=== PATIENT | female | born 1950 | race Caucasian/White ===

== ENCOUNTER 2016-08-23 06:22 | Day surgery (SDC) | payer MEDICARE, OTHER ==
[~2016-08-23 06:22] MED LIST: Lactated Ringers 1,000 ML IV SCH
[2016-08-23] MEDS ORDERED: Propofol 200 MG/20 ML SDV ONE (07:53)
[2016-08-23] MEDS ORDERED: fentaNYL 100 MCG/2 ML SDV ONE (07:53)
[2016-08-23 08:39] VITALS: BP 115/55
--- NOTE | 2016-08-23 09:17 | OR ---
PREOPERATIVE DIAGNOSIS: Chronic gastroesophageal reflux disease. POSTOPERATIVE DIAGNOSIS: 1. Small hiatal hernia without active gastroesophageal reflux disease. 2. Mild to moderate antritis. 3. Diffuse gastritis. PROCEDURE PROPOSED: Upper gastrointestinal panendoscopy with antral biopsies. PROCEDURE DONE: Upper gastrointestinal panendoscopy with antral biopsies. INDICATION: This is a 66-year-old female bothered with chronic GERD for many years. She has been on medication for 15 to 20 years. Her last gastroscopy was about 15 years ago. She is presently taking generic Protonix twice a day and still has some issues in the morning with sore throat, cough, and some mild dysphagia. It was felt that she should be re-examined due to the length of time of symptoms. TECHNIQUE: The patient was brought to the endoscopy suite, placed in the left lateral decubitus position. She was sedated with propofol per [employer] TE[employer]ER. The gastroscope was then inserted transorally and advanced through the esophagus all the way, well into the second and third portion of the duodenum. Examination revealed a normal duodenum. The antrum revealed significant antritis with streaks of redness and some tiny superficial ulcerations. A couple of biopsies were taken from the antrum. The body of the stomach revealed prominent rugal folds and several fundal gastric nodules compatible with chronic gastritis. She had a rather small insignificant 2 cm hiatal hernia with no active GERD. There are no signs of any Jones esophagus, Schatzki ring, or stenosis. The remainder of esophagus was normal as the scope was then withdrawn. The patient tolerated the procedure well. IMPRESSION: 1. Small hiatal hernia without active gastroesophageal reflux disease. 2. Mild to moderate antritis with superficial ulcerations. PLAN: At this point, I feel that she should continue taking generic Protonix twice a day. I am going to add Carafate for 1 month, and I am also going to have her take it 1 to 2 tablespoons of liquid Gaviscon at bedtime. She needs to avoid caffeine, alcohol, ibuprofen, aspirin, and follow up with her PCP as needed. SCM: 08/23/2016 08:16:52 MODL: 08/23/2016 09:11:41 /[id number]
== END 2016-08-23 09:16 | disposition home or self-care (01) ==
LOC: VM.SDS 06:22
PROVIDERS: ATTEND Surgery
DX: K44.9 Diaphragmatic hernia without obstruction or gangrene (principal); E78.5 Hyperlipidemia, unspecified; Z79.82 Long term (current) use of aspirin; Z79.899 Other long term (current) drug therapy
CPT/HCPCS: 43239; J2704; J3010; J7120; 88305

== ENCOUNTER 2024-01-08 08:53 | Emergency (ER) | payer MEDICARE, OTHER ==
[2024-01-08] MEDS: Aspirin 81 MG Tab.Chew PO ONE (08:55)
[2024-01-08 09:35] LABS: BASOPHILS PERCENT AUTO 0.2 % (0.2-1.2); EOSINOPHILS ABSOLUTE AUTO 0.1 x10^3/uL (0.0-0.5); HEMATOCRIT 40.5 % (33.0-47.0); HEMOGLOBIN 13.6 g/dL (12.0-16.0); LYMPHOCYTES ABSOLUTE AUTO 1.4 x10^3/uL (1.0-4.8); LYMPHOCYTES PERCENT AUTO 29.3 % (25.0-50.0); MEAN CORPUSCULAR HEMOGLOBIN 31.1 pg (26.0-32.0); MEAN CORPUSCULAR HGB CONC 33.6 g/dL (32.0-36.0); MEAN CORPUSCULAR VOLUME 92.7 fL (78.0-93.0); MONOCYTES ABSOLUTE AUTO 0.5 x10^3/uL (0.0-0.8); MONOCYTES PERCENT AUTO 9.8 % (2.0-11.0); NEUTROPHILS ABSOLUTE AUTO 2.9 x10^3/uL (1.8-7.7); NEUTROPHILS PERCENT AUTO 59.7 % (50.0-80.0); PLATELET COUNT,PLT 181 x10^3/uL (130-400); RED BLOOD CELL COUNT 4.37 x10^6/uL (4.00-5.50); WHITE BLOOD CELL COUNT,WBC 4.9 x10^3/uL (4.0-10.0)
[2024-01-08 09:52] LABS: A/G RATIO 0.89; ALANINE AMINOTRANSFERASE,ALT 33 U/L (14-59); ALBUMIN 3.1 g/dL (3.4-5.0); ALKALINE PHOSPHATASE 89 U/L (46-116); ASPARTATE AMNIOTRANSFERASE,AST 21 U/L (15-37); BILIRUBIN TOTAL 0.8 mg/dL (0.2-1.0); BLOOD UREA NITROGEN,BUN 16 mg/dL (7-18); CALCIUM 8.5 mg/dL (8.5-10.1); CARBON DIOXIDE,CO2 29 mmol/L (21-32); CHLORIDE,CL 107 mmol/L (98-107); CREATININE 0.9 mg/dL (0.55-1.02); GLUCOSE RANDOM 122 mg/dL (70-99); POTASSIUM,K 3.6 mmol/L (3.5-5.1); PROTEIN TOTAL,TP 6.6 g/dL (6.4-8.2); SODIUM,NA 144 mmol/L (136-145)
[2024-01-08 09:53] VITALS: BP 118/50; PULSE 65
[2024-01-08 09:53] LABS: ANION GAP 11.6 mmol/L (5-15); ESTIMATED GFR 68 mL/min (>=60)
== END 2024-01-08 10:20 | disposition home or self-care (01) ==
LOC: VM.ED 08:53
DX: R07.89 Other chest pain (principal); M19.90 Unspecified osteoarthritis, unspecified site; E78.00 Pure hypercholesterolemia, unspecified; Z79.82 Long term (current) use of aspirin; Z79.899 Other long term (current) drug therapy
CPT/HCPCS: 71045; 80053; 84484; 85025; 93005; 99285; A9270; 93010; 99284